=== PATIENT | male | born 1990 | race Caucasian/White ===

== ENCOUNTER 2017-06-12 07:00 | Emergency (ER) | payer BC ==
[~2017-06-12] VITALS: Ht 185.4 cm; Wt 74.1 kg
[2017-06-12 07:04] VITALS: BP 139/78; TEMP 98.7
[2017-06-12 08:03] LABS: INFLUENZA A NEGATIVE; INFLUENZA B POSITIVE
[2017-06-12 08:24] VITALS: PULSE 78
== END 2017-06-12 08:25 | disposition home or self-care (01) ==
LOC: COL.ER 07:00
PROVIDERS: Emergency Medicine
DX: J10.1 Influenza due to other identified influenza virus with other respiratory manifestations (principal); F32.9 Major depressive disorder, single episode, unspecified; F17.200 Nicotine dependence, unspecified, uncomplicated

== ENCOUNTER 2019-10-02 19:32 | Emergency (ER) | payer OTHER ==
[~2019-10-02] VITALS: Ht 185.4 cm; Wt 75.0 kg
[2019-10-02 19:57] VITALS: TEMP 98.9
[2019-10-02] MEDS ORDERED: DOXYCYCLINE 10100 MG PO (21:07)
[2019-10-02 21:28] VITALS: BP 124/76; PULSE 76
== END 2019-10-02 21:30 | disposition home or self-care (01) ==
LOC: COL.ER 19:32
DX: S90.861A Insect bite (nonvenomous), right foot, initial encounter (principal); F17.220 Nicotine dependence, chewing tobacco, uncomplicated; W57.XXXA Bitten or stung by nonvenomous insect and other nonvenomous arthropods, initial encounter

== ENCOUNTER 2020-03-13 19:08 | Emergency (ER) | payer OTHER ==
[~2020-03-13] VITALS: Ht 185.4 cm; Wt 71.8 kg
[~2020-03-13 19:08] MED LIST: DOXYCYCLINE 10100 MG PO
[2020-03-13 20:07] VITALS: BP 126/68; PULSE 78; TEMP 98.3
== END 2020-03-13 20:09 | disposition home or self-care (01) ==
LOC: COL.ER 19:08
DX: S67.02XA Crushing injury of left thumb, initial encounter (principal); W23.0XXA Caught, crushed, jammed, or pinched between moving objects, initial encounter; Y92.009 Unspecified place in unspecified non-institutional (private) residence as the place of occurrence of the external cause